=== PATIENT | male | born 1985 | race Caucasian/White ===

== ENCOUNTER 2020-10-13 12:24 | Emergency (ER) | payer MEDICAID ==
[~2020-10-13] VITALS: Ht 160 cm; Wt 83.0 kg
[2020-10-13 13:04] VITALS: BP 137/87
--- NOTE | 2020-10-13 13:06 | NUR ---
Patient ambulated to [facility]
--- NOTE | 2020-10-13 14:09 | NUR ---
PT SEEN AND D/C BY BOO MASTERSON PA-C. NO NURSING INTERVENTIONS REQUIRED. D/C FROM [facility].
== END 2020-10-13 14:09 | disposition home or self-care (01) ==
LOC: MED 12:24
DX: R20.2 Paresthesia of skin (principal); R03.0 Elevated blood-pressure reading, without diagnosis of hypertension
CPT/HCPCS: 99281